=== PATIENT | female | born 1955 | race Caucasian/White ===

== ENCOUNTER 2018-07-17 10:41 | Emergency (ER) | payer OTHER ==
--- NOTE | 2018-07-17 11:08 | ER Document Report ---
HPI - HPI Patient complains to provider of: Right leg knee pain Onset: Other - 4 days Onset/Duration: Waxing and waning Quality of pain: Achy Pain Level: 3 Context: Patient complains of right lower extremity pain for the past 4 days. Patient states that yesterday she was walking and felt a pop in the popliteal area of her right knee. Patient states she now no longer has right thigh or calf pain and only has tenderness to the popliteal area. Associated Symptoms: Other - Right leg pain. denies: Body/muscle aches, Chest pain, Nonproductive cough Exacerbated by: Standing, Movement, Walking Relieved by: Denies Similar symptoms previously: No Recently seen / treated by doctor: No - ROS ROS below otherwise negative: Yes Systems Reviewed and Negative: Yes All other systems reviewed and negative - CONSTITUTIONAL Constitutional: DENIES: Fever - CARDIOVASCULAR Cardiovascular: DENIES: Chest pain - RESPIRATORY Respiratory: DENIES: Coughing - MUSCULOSKELETAL Musculoskeletal: REPORTS: Extremity pain - right knee. DENIES: Swelling - DERM Skin Color: Normal Skin Problems: None Past Medical History - General Information source: Patient - Social History Smoking Status: Never Smoker Chew tobacco use (# tins/day): No Frequency of alcohol use: Occasional Drug Abuse: None Lives with: Spouse/Significant other Family History: Reviewed & Not Pertinent Patient has suicidal ideation: No Patient has homicidal ideation: No - Past Medical History Cardiac Medical History: Reports: Hx Hypertension Endocrine Medical History: Reports: Hx Diabetes Mellitus Type 2 - with neuropathy Renal/ Medical History: Denies: Hx Peritoneal Dialysis Past Surgical History: Reports: Hx Breast Surgery - left lumpectomy, Hx Nose Surgery Vertical Provider Document - CONSTITUTIONAL Agree With Documented VS: Yes Exam Limitations: No Limitations General Appearance: WD/WN, No Apparent Distress - INFECTION CONTROL TRAVEL OUTSIDE OF THE [place] IN LAST 30 DAYS: No - HEENT HEENT: Atraumatic, Normocephalic - NECK Neck: Normal Inspection, Supple - RESPIRATORY Respiratory: No Respiratory Distress - CARDIOVASCULAR Cardiovascular: Regular Rhythm Pulses: Normal: Dorsalis pedis - BACK Back: Normal Inspection - MUSCULOSKELETAL/EXTREMETIES Musculoskeletal/Extremeties: MAEW, FROM, Tender - Right knee popliteal area tenderness, no joint effusion, no laxity with varus or valgus maneuvers. Patellar tendon intact. Normal skin color and temperature overlying joint, No Edema - NEURO Level of Consciousness: Awake, Alert, Appropriate Motor/Sensory: No Motor Deficit - DERM Integumentary: Warm, Dry, No Rash Course - Re-evaluation Re-evalutation: 07/17/18 Patient without any findings worrisome for DVT. No obvious bony abnormality. No concern for fracture, dislocation or septic arthritis. Patient declined crutches and prefers only to use Yoav wrap at this time. - Vital Signs Vital signs: Temp Pulse Resp BP Pulse Ox 97.5 F 101 H 16 135/69 H 97 07/17/18 10:50 07/17/18 10:50 07/17/18 10:50 07/17/18 10:50 07/17/18 10:50 - Diagnostic Test Radiology reviewed: Reports reviewed Procedures - Immobilization Right Knee Pre-Proc Neuro Vasc Exam: Normal Immobilizer type: Yoav wrap Performed by: RN Post-Proc Neuro Vasc Exam: Normal Alignment checked and good: Yes Discharge - Discharge Clinical Impression: Right knee sprain Qualifiers: Encounter type: initial encounter Involved ligament of knee: unspecified ligament Qualified Code(s): S83.91XA - Sprain of unspecified site of right knee , initial encounter Condition: Stable Disposition: HOME, SELF-CARE Instructions: Yoav Wrap ([facility]), Use of Crutches ([facility]), Ice & Elevation ([facility]), Sprained Knee ([facility]) Additional Instructions: Return immediately for any new or worsening symptoms Followup with your primary care provider, call tomorrow to make a followup appointment Weightbearing as tolerated Follow-up with orthopedics for any persistent pain or problems Referrals: [facility] [Provider Group] - Follow up as needed
--- NOTE | 2018-07-17 12:14 | RADIOLOGY REPORT (SQ) ---
EXAM DESCRIPTION: VENOUS UNILATERAL LOWER COMPLETED DATE/TIME: 07/17/2018 12:07 pm REASON FOR STUDY: RLE pain COMPARISON: None. TECHNIQUE: Dynamic and static keenan scale and color images acquired of the right leg venous system. S elected spectral images acquired with additional compression and augmentation maneuvers. The contrala teral common femoral vein and saphenofemoral junction were also imaged. Images stored on PACS. LIMITATIONS: None. FINDINGS: COMMON FEMORAL: Normal phasicity, compression and augmentation. No visualized echogenic ma terial on keenan scale. No defects on color images. FEMORAL: Normal compression and augmentation. No visualized echogenic material on keenan scale. No defe cts on color images. POPLITEAL: Normal compression, augmentation. No visualized echogenic material on keenan scale. No defec ts on color images. CALF VESSELS: Normal compression, augmentation. No visualized echogenic material on keenan scale. No de fects on color images. GSV and SSV: Normal compression, augmentation. No visualized echogenic material on keenan scale. No def ects on color images. ANY DEEP VENOUS INSUFFICIENCY: Not evaluated. ANY EVIDENCE OF POPLITEAL CYST: No. OTHER: No other significant finding. CONTRALATERAL COMMON FEMORAL VEIN AND SAPHENOFEMORAL JUNCTION: Normal phasicity, compression and augmentation. No visualized echogenic material on keenan scale. No de fects on color images. IMPRESSION: NO EVIDENCE DVT OR SVT IN THE RIGHT LEG. TECHNICAL DOCUMENTATION: JOB ID: [id number] [employer]- All Rights Reserved Reading location - IP/workstation name: [email or web address]
--- NOTE | 2018-07-17 12:48 | RADIOLOGY REPORT (SQ) ---
EXAM DESCRIPTION: KNEE RIGHT 4 VIEWS COMPLETED DATE/TIME: 07/17/2018 12:38 pm REASON FOR STUDY: pop to r knee COMPARISON: None. NUMBER OF VIEWS: Four views. TECHNIQUE: AP, lateral, and both oblique radiographic images acquired of the right knee. LIMITATIONS: None. FINDINGS: MINERALIZATION: Osteopenia. BONES: No acute fracture or dislocation. No worrisome bone lesions. JOINT: No effusion. SOFT TISSUES: No soft tissue swelling. No radio-opaque foreign body. OTHER: No other significant finding. IMPRESSION: NO RADIOGRAPHIC EVIDENCE OF ACUTE INJURY. TECHNICAL DOCUMENTATION: JOB ID: [id number] [employer]- All Rights Reserved Reading location - IP/workstation name: [email or web address]
[2018-07-17 13:07] VITALS: BP 128/69
== END 2018-07-17 13:10 | disposition home or self-care (01) ==
LOC: ER 10:41
DX: S83.91XA Sprain of unspecified site of right knee, initial encounter (principal); X58.XXXA Exposure to other specified factors, initial encounter; I10 Essential (primary) hypertension; E11.9 Type 2 diabetes mellitus without complications
CPT/HCPCS: 93971; 99284